=== PATIENT | female | born 1960 | race Caucasian/White ===

== ENCOUNTER 2018-09-20 17:45 | Inpatient (IN) | payer OTHER ==
[~2018-09-20] VITALS: Ht 170.2 cm; Wt 64.6 kg
[2018-09-20 18:25] LABS: BASOPHILS ABSOLUTE AUTO 0.02 K/mm3 (0.00-0.23); BASOPHILS PERCENT AUTO 0 % (0-2); EOSINOPHILS PERCENT AUTO 0 % (0-6); Hematocrit 29.8 % (33.0-51.0); Hemoglobin 10.2 g/dL (11.5-16.0); IMMATURE GRAN ABSOLUTE AUTO 0.12 K/mm3 (0.00-0.10); IMMATURE GRAN PERCENT AUTO 1 % (0-1); LYMPHOCYTES ABSOLUTE AUTO 0.48 K/mm3 (0.84-5.20); LYMPHOCYTES PERCENT AUTO 4 % (21-46); MONOCYTES ABSOLUTE AUTO 0.93 K/mm3 (0.16-1.47); MONOCYTES PERCENT AUTO 7 % (4-13); Mean Corpuscular HGB 31.9 pg (26.0-34.0); Mean Corpuscular HGB Conc 34.2 g/dL (31.5-36.5); Mean Corpuscular Volume 93 fL (80-100); Mean Platelet Volume 10.3 fL (9.1-12.4); NEUTROPHILS ABSOLUTE AUTO 10.96 K/mm3 (1.96-9.15); NEUTROPHILS PERCENT AUTO 88 % (41-73); Platelet Count 198 K/mm3 (150-400); RDW Coefficient Variation 11.3 % (11.7-14.2); RDW Standard Deviation 38.9 fL (35.1-46.3); White Blood Cell Count 12.51 K/mm3 (4.00-11.30)
[2018-09-20 18:44] LABS: Source, Urine Clean Catch
[2018-09-20 18:47] LABS: Alanine Aminotransfer (ALT/SGP 57 U/L (12-78); Albumin, Blood 3.1 g/dL (3.4-5.0); Albumin/Globulin Ratio 0.9 (0.8-1.8); Alk Phos 68 U/L (50-136); Anion Gap 8 mmol/L (6-16); Aspartate Aminotrans (AST/SGOT 81 U/L (12-37); Bilirubin, Total 1.1 mg/dL (0.1-1.0); Blood Urea Nitrogen 14 mg/dL (8-24); Bun/Creatinine Ratio 17.8 (12.0-20.0); CO2, Blood 24 mmol/L (21-32); Calcium, Blood 8.6 mg/dL (8.5-10.1); Chloride, Blood 104 mmol/L (98-108); Creatinine, Blood 0.79 mg/dL (0.40-1.00); Globulin, Blood 3.5 g/dL (2.2-4.0); Glomerular Filtration Rate >60 (60-); Glucose, Blood 128 mg/dL (70-99); Potassium, Blood 3.4 mmol/L (3.5-5.5); Sodium, Blood 136 mmol/L (136-145); Total Protein, Blood 6.6 g/dL (6.4-8.2)
[2018-09-20 18:50] LABS: Appearance, Urine Hazy (Clear); Bilirubin, Urine Neg (Neg); Blood, Urine 4+ (Neg); Color, Urine Yellow (P-Yellow); Glucose Qualitative, Urine Neg (Neg); Ketones, Urine Neg (Neg); Leukocyte Esterase, Urine 3+ (Neg); Nitrite, Urine Neg (Neg); Protein, Urine 3+ (Neg); Specific Gravity, Urine 1.015 (1.003-1.022); Urobilinogen, Urine 1+ (Normal)
[2018-09-20 19:15] LABS: White Blood Cells, Urine 50-100 /hpf (0-5)
[2018-09-20 19:16] LABS: Bacteria Many /hpf; Squamous Epithelial Cells Few /hpf (Few)
--- NOTE | 2018-09-20 23:00 | NUR ---
PCU ADMIT PT BROUGHT TO PCU RM 05 FROM THE ER BY ASAEL @ 2140. PT A&O X4, FEBRILE @ 100.4 ORAL TEMP W/ BLANKETS PILED ON PT. STAFF ATTEMPT TO REMOVE PT BLANKETS W/ PT REFUSAL OF REMOVAL. PT MEDICATED W/ TYLENOL PER EMAR W/ INCREASE IN TEMP TO 103.1 UPON REASSESSMENT. THIS NURSE EDUCATING PT AND PT SPOUSE ABOUT CONCERNS FOR FEVER INCREASING AND PT BUNDLING BLANKETS OVER BODY. PT SPOUSE AND PT VOICE REFUSAL STATING "NEW RESEARCH HAS BEEN RELEASED THAT ENVIRONMENTAL TEMPERATURE DOES NOT AFFECT CORE TEMPERATURE." PT SPOUSE STATING "WE'VE BEEN 34 YEARS AND SHE STRUGGLES WITH STAYING WARM. IT'S NOT GOOD FOR HER TO BE COLD. SHE'S THIN AND HAS A HIGH METABOLISM, SHE DOESN'T HAVE THE CALORIES TO BE ABLE TO SHIVER." TIME SPENT ADDRESSING VOICED CONCERNS AND VIEWS W/ CONTINUED REFUSAL BY PT AND PT SPOUSE FOR REMOVAL OF EXCESS BLANKETS AND POSSIBLY ADDING A FAN. WILL CONTINUE TO MONITOR AND PROVIDE CARE ABLE.
[2018-09-21 03:47] LABS: Hematocrit 27.8 % (33.0-51.0); Hemoglobin 9.6 g/dL (11.5-16.0); Mean Corpuscular HGB 32.2 pg (26.0-34.0); Mean Corpuscular HGB Conc 34.5 g/dL (31.5-36.5); Mean Corpuscular Volume 93 fL (80-100); Mean Platelet Volume 10.2 fL (9.1-12.4); Platelet Count 175 K/mm3 (150-400); RDW Coefficient Variation 11.5 % (11.7-14.2); RDW Standard Deviation 39.1 fL (35.1-46.3); Red Blood Cell Count 2.98 M/mm3 (3.80-5.20); White Blood Cell Count 11.49 K/mm3 (4.00-11.30)
[2018-09-21 04:03] LABS: Anion Gap 7 mmol/L (6-16); Blood Urea Nitrogen 13 mg/dL (8-24); Bun/Creatinine Ratio 15.5 (12.0-20.0); CO2, Blood 21 mmol/L (21-32); Calcium, Blood 7.5 mg/dL (8.5-10.1); Chloride, Blood 110 mmol/L (98-108); Creatinine, Blood 0.84 mg/dL (0.40-1.00); Glomerular Filtration Rate >60 (60-); Glucose, Blood 112 mg/dL (70-99); Magnesium, Blood 1.8 mg/dL (1.6-2.4); Potassium, Blood 3.7 mmol/L (3.5-5.5); Sodium, Blood 138 mmol/L (136-145)
--- NOTE | 2018-09-21 04:56 | NUR ---
SHIFT SUMMARY PT A&O X4. PT TEMP CONTINUES TO BE ELEVATED. PT AND PT SPOUSE REFUSING PO TYLENOL AND IBUPROFEN AND MULTIPLE BLANKETS REMAIN ON PT DESPITE STAFF EDUCATION. PT SPOUSE REQUESTING IV NUTRITION FOR PT STATING PT HASN'T EATEN IN DAYS. STAFF ENCOURAGING PO NUTRITION AND HYDRATION. NS KCL GTT INFUSING PER EMAR. PT C/O NAUSEA, MEDICATED PER EMAR X2 THIS SHIFT. PT DENIES ANY PAIN. BP CONTINUES TO BE LOW, OTHERWISE VSS. MONITOR SHOWS NSR, HR 80-100. LUNG SOUNDS CLEAR, SPO2 > 92% ON RA. WILL CONTINUE TO MONITOR AND PROVIDE CARE UNTIL REPORT OFF TO DAY SHIFT RN.
--- NOTE | 2018-09-21 07:19 | NUR ---
Bedside handoff report received from Kaitlyn Lowe RN. The pt is right side lying in the bed, states that there is nothing she needs at the moment. States that she tolerated the smoothie which her brought her from home without any nausea or vomiting. STates that before she was not able to keep anything down. Her is also at the bedside at this time.
--- NOTE | 2018-09-21 08:59 | NUR ---
ASSUMED CARE OF PATIENT AT APPROX 0700. PT RESTING IN BED. A&Ox4. CALM AND COOPERATIVE WITH CARE. PT DENIES PAIN, NAUSEA AND SOB. DENIES PAINFUL OR DIFFICULT URNIATIONS. PT LS DIM IN BASES, ENCOURAGED DEEP BREATHING AND COUGHING. PT FEBRILE, DENIES NEEDS FOR MEDICATIONS OR INTERVENTION AT THIS TIME. SPOUSE AT BEDSIDE. WILL CONTINUE TO MONITOR.
--- NOTE | 2018-09-21 14:02 | NUR ---
REPORT GIVEN TO PATSY HILTON ON MEDICATIONS, PT TO ROOM 355. PT CONTINUE TO BE FEBRILE, SPOUSE AND PATIENT SPOKE WITH WITH PATSY ANGULO REGARDING POSSIBLY TRYING TYLENOL AND ZOFRAN AFTER A SMOOTHING FROM HOME. NO CHANGES FROM ASSESSMENT THIS AM.
--- NOTE | 2018-09-21 15:36 | NUR ---
PCU TRANSFER. RECIEVED REPORT. PT ARRIVE TO MED FLOOR RM 355 APPROX 1430. SHE IS A/O X4, PLEASANT AFFECT. STATE NO PAIN @ THIS TIME, STATE COMFORT. SHE APPEARS FATIGUED. TEMP @ 100.6, BP 97/59, BIOX 92% RA. FLUIDS & ICE CHIPS PROVIDED. IV NS w 20KCL+ INFUSING @ 125 ML/HR. FAMILY @ BEDSIDE. PT STATE SHE IS WILLING TO ACCEPT ANTIPYRETIC SUCH TYLENOL IF BECOMES FEVERISH AGAIN, STATE REASON SHE HAD DECLINED EARLIER D/T NAUSEA.
[2018-09-22 04:56] LABS: Hematocrit 29.3 % (33.0-51.0); Hemoglobin 9.6 g/dL (11.5-16.0); Mean Corpuscular HGB 30.5 pg (26.0-34.0); Mean Corpuscular HGB Conc 32.8 g/dL (31.5-36.5); Mean Corpuscular Volume 93 fL (80-100); Mean Platelet Volume 10.3 fL (9.1-12.4); Platelet Count 174 K/mm3 (150-400); RDW Coefficient Variation 11.6 % (11.7-14.2); RDW Standard Deviation 39.5 fL (35.1-46.3); Red Blood Cell Count 3.15 M/mm3 (3.80-5.20)
[2018-09-22 05:17] LABS: Alanine Aminotransfer (ALT/SGP 48 U/L (12-78); Albumin, Blood 2.6 g/dL (3.4-5.0); Albumin/Globulin Ratio 0.8 (0.8-1.8); Alk Phos 71 U/L (50-136); Anion Gap 7 mmol/L (6-16); Aspartate Aminotrans (AST/SGOT 36 U/L (12-37); Bilirubin, Total 0.5 mg/dL (0.1-1.0); Blood Urea Nitrogen 13 mg/dL (8-24); CO2, Blood 21 mmol/L (21-32); Chloride, Blood 112 mmol/L (98-108); Creatinine, Blood 0.77 mg/dL (0.40-1.00); Globulin, Blood 3.2 g/dL (2.2-4.0); Glomerular Filtration Rate >60 (60-); Glucose, Blood 97 mg/dL (70-99); Potassium, Blood 3.9 mmol/L (3.5-5.5); Sodium, Blood 140 mmol/L (136-145); Total Protein, Blood 5.8 g/dL (6.4-8.2)
[2018-09-22 05:20] LABS: BAND PERCENT MAN 18 % (0-8); BASOPHILS PERCENT MAN 0 % (0-2); EOSINOPHILS PERCENT MAN 0 % (0-6); LYMPHOCYTES ABSOLUTE MAN 0.41 K/mm3 (0.84-5.20); LYMPHOCYTES PERCENT MAN 4 % (21-46); MONOCYTES PERCENT MAN 1 % (4-13); NEUTROPHILS ABSOLUTE MAN 9.78 K/mm3 (1.96-9.15); SEG NEUTROPHILS PERCENT MAN 77 % (41-73); TOTAL CELLS COUNTED 100
[2018-09-22 05:23] LABS: Percent Saturation 6.7 % (15.0-50.0)
--- NOTE | 2018-09-22 06:30 | NUR ---
SHIFT SUMMARY PT IS A 58 Y/O F, ADMITTED FOR ACUTE PYELONEPHRITIS. SHE IS A&O X 4, AND A SBA IN THE ROOM. THE PT DENIED PAIN OR SOB DURING THE NIGHT. SHE DID REPORT NAUSEA AND A LACK OF APPETITE, THOUGH SHE DENIED THE NEED FOR NAUSEA MEDS. THE PT HAD A FEVER THROUGH THE NIGHT. AT THE BEGINNING OF THE SHIFT, PT WAS AT 102.1. SHE WAS MEDICATED WITH A ONE TIME DOSE OF IV TORADOL, SHE REPORTED WOULD BE UNABLE TO KEEP PO MEDS DOWN. ON REASSESSMENT, PT'S TEMPERATURE CAME DOWN TO 100.3, AND REMAINED BETWEEN 100-100.9 THROUGH THE NIGHT. SHE ALSO REPORTED EPISODES OF CHILLS AND SWEATS. THIS AM, THE PT'S O2 LEVEL WAS AT 87-88%, AND SHE WAS PLACED ON 2L OF O2 VIA NC. ALL OTHER VITALS REMAINED STABLE. NO OTHER ACUTE CHANGES IN PT CONDITION NOTED. WILL CONTINUE TO MONITOR AND TREAT PER EMAR UNTIL HAND OFF TO DAY SHIFT.
--- NOTE | 2018-09-22 11:00 | NUR ---
PT QUITE PLEASANT COOP A/O DENIES PAIN. IS PALE. STATES IS VEGETARIAN. H/R REG, NO MURMER NOTED. NO TELE. LUNGS CLEAR, NO MURMER NOTED. INSTRUCTED ON BETTER USE OF INCENTIVE SPIROMETER. RESP EASY, UNLABORED SHALLOW. ON 2L O2. REMOVED O2. CHECKED SEVERAL TIMES. IS >90% . BT ARE HYPO. LAST BM YEST PER PT. VOIDS PER BATHROOM. INDEPENDANT IN ROOM. WALKS CRUZ WITH . BED IN LOW POSITION, CALL LITE IN REACH, CALLS APPROP
--- NOTE | 2018-09-22 16:11 | NUR ---
PT PLEASANT TODAY. STATES SHE DOING BETTER TODAY. DID SHOWER SELF TODAY. BEEN UP IN ROOM. NO OTHER CONCERNS AT THIS TIME. BED IN LOW POSITION, CALL LITE IN REACH. CALLS APPROP. HAS BEEN EATING OWN HOME MADE VEGETARIAN FOOD.
[2018-09-23 05:28] LABS: BASOPHILS ABSOLUTE AUTO 0.02 K/mm3 (0.00-0.23); BASOPHILS PERCENT AUTO 0 % (0-2); EOSINOPHILS ABSOLUTE AUTO 0.03 K/mm3 (0.00-0.68); EOSINOPHILS PERCENT AUTO 0 % (0-6); Hematocrit 26.7 % (33.0-51.0); Hemoglobin 9.2 g/dL (11.5-16.0); IMMATURE GRAN ABSOLUTE AUTO 0.07 K/mm3 (0.00-0.10); IMMATURE GRAN PERCENT AUTO 1 % (0-1); LYMPHOCYTES ABSOLUTE AUTO 0.67 K/mm3 (0.84-5.20); LYMPHOCYTES PERCENT AUTO 8 % (21-46); MONOCYTES ABSOLUTE AUTO 0.58 K/mm3 (0.16-1.47); MONOCYTES PERCENT AUTO 7 % (4-13); Mean Corpuscular HGB 31.9 pg (26.0-34.0); Mean Corpuscular HGB Conc 34.5 g/dL (31.5-36.5); Mean Corpuscular Volume 93 fL (80-100); Mean Platelet Volume 10.8 fL (9.1-12.4); NEUTROPHILS ABSOLUTE AUTO 6.57 K/mm3 (1.96-9.15); NEUTROPHILS PERCENT AUTO 83 % (41-73); Platelet Count 196 K/mm3 (150-400); RDW Coefficient Variation 11.4 % (11.7-14.2); RDW Standard Deviation 38.8 fL (35.1-46.3); Red Blood Cell Count 2.88 M/mm3 (3.80-5.20); White Blood Cell Count 7.94 K/mm3 (4.00-11.30)
[2018-09-23 05:50] LABS: Anion Gap 9 mmol/L (6-16); Blood Urea Nitrogen 10 mg/dL (8-24); Bun/Creatinine Ratio 15.6 (12.0-20.0); CO2, Blood 22 mmol/L (21-32); Calcium, Blood 7.8 mg/dL (8.5-10.1); Chloride, Blood 110 mmol/L (98-108); Creatinine, Blood 0.64 mg/dL (0.40-1.00); Glomerular Filtration Rate >60 (60-); Glucose, Blood 81 mg/dL (70-99); Potassium, Blood 3.6 mmol/L (3.5-5.5); Sodium, Blood 141 mmol/L (136-145)
--- NOTE | 2018-09-23 06:58 | NUR ---
SHIFT SUMMARY PT A/O INDEPENDENT IN ROOM. NO C/O PAIN. S/O AT BEDSIDE T/O NOC. SHE WAS ABLE TO SLEEP T/O NOC. CALL LIGHT IN REACH.
[2018-09-23] MEDS ORDERED: Amoxicillin500 MG PO (09:46)
[2018-09-23] MEDS ORDERED: Vsl#3 Capsule1 EACH PO (09:47)
--- NOTE | 2018-09-23 09:57 | NUR ---
DISCHARGE NOTE PT DISCHARGED VIA W/C HOME WITH SIGNIFICANT OTHER AND IN NO PAIN OR DISTRESS. VERBALIZED UNDERSTANDING OF TAKING ANTIBIOTICS AND OTHER MEDICATIONS PRESCRIBED. TO FOLLOW UP WITH PCP AND FAMILY/PT WILL SCHEDULE AN APPOINTMENT. RX FAXED TO [facility] PRIOR TO DISCHARGE.
== END 2018-09-23 10:07 | disposition home or self-care (01) | DRG 872 ==
LOC: ER 17:45 → PCU 20:11 → MEDS 09-21 13:45
PROVIDERS: Emergency Medicine; Internal Medicine; Nurse Practitioner Acute Care; Physician Assistant; ADMIT Hospitalist
DX: A41.51 Sepsis due to Escherichia coli [E. coli] (principal); N10 Acute pyelonephritis; D50.9 Iron deficiency anemia, unspecified; Z66 Do not resuscitate; D63.8 Anemia in other chronic diseases classified elsewhere; R79.89 Other specified abnormal findings of blood chemistry; D64.9 Anemia, unspecified; E87.6 Hypokalemia
CPT/HCPCS: 36415; 71046; 80048; 80053; 81001; 82607; 82728; 82746; 83540; 83550; 83605; 83735; 85025; 85027; 87040; 87086; 87186; 96365; 96375; 99285-25; A9270; J0696; J1885; J2405; J3480; J7030

== ENCOUNTER → 2018-09-20 | Outpatient (CLI) | payer SELFPAY ==
[~2018-09-20] MED LIST: Amoxicillin500 MG PO; Vsl#3 Capsule1 EACH PO
[2018-09-20 10:39] LABS: BASOPHILS ABSOLUTE AUTO 0.03 K/mm3 (0.00-0.23); BASOPHILS PERCENT AUTO 0 % (0-2); EOSINOPHILS PERCENT AUTO 0 % (0-6); Hematocrit 33.6 % (33.0-51.0); Hemoglobin 11.6 g/dL (11.5-16.0); IMMATURE GRAN PERCENT AUTO 1 % (0-1); LYMPHOCYTES ABSOLUTE AUTO 0.41 K/mm3 (0.84-5.20); LYMPHOCYTES PERCENT AUTO 3 % (21-46); MONOCYTES ABSOLUTE AUTO 1.18 K/mm3 (0.16-1.47); MONOCYTES PERCENT AUTO 8 % (4-13); Mean Corpuscular HGB Conc 34.5 g/dL (31.5-36.5); Mean Corpuscular Volume 93 fL (80-100); Mean Platelet Volume 10.8 fL (9.1-12.4); NEUTROPHILS ABSOLUTE AUTO 12.36 K/mm3 (1.96-9.15); NEUTROPHILS PERCENT AUTO 88 % (41-73); Platelet Count 250 K/mm3 (150-400); RDW Coefficient Variation 11.2 % (11.7-14.2); RDW Standard Deviation 38.2 fL (35.1-46.3); Red Blood Cell Count 3.62 M/mm3 (3.80-5.20); White Blood Cell Count 14.08 K/mm3 (4.00-11.30)
[2018-09-20 10:49] LABS: Alanine Aminotransfer (ALT/SGP 18 U/L (12-78); Albumin, Blood 3.5 g/dL (3.4-5.0); Albumin/Globulin Ratio 0.9 (0.8-1.8); Alk Phos 64 U/L (50-136); Anion Gap 10 mmol/L (6-16); Aspartate Aminotrans (AST/SGOT 21 U/L (12-37); Bilirubin, Total 1.1 mg/dL (0.1-1.0); Blood Urea Nitrogen 15 mg/dL (8-24); Bun/Creatinine Ratio 16.6 (12.0-20.0); CO2, Blood 25 mmol/L (21-32); Calcium, Blood 8.8 mg/dL (8.5-10.1); Chloride, Blood 101 mmol/L (98-108); Globulin, Blood 3.9 g/dL (2.2-4.0); Glomerular Filtration Rate >60 (60-); Glucose, Blood 120 mg/dL (70-99); Potassium, Blood 3.2 mmol/L (3.5-5.5); Sodium, Blood 136 mmol/L (136-145); Total Protein, Blood 7.4 g/dL (6.4-8.2)
== END ==
LOC: LAB SHORT 10:23 → LAB 10:23
PROVIDERS: Nurse Practitioner
DX: R30.0 Dysuria (principal); R50.9 Fever, unspecified; R53.83 Other fatigue
CPT/HCPCS: 80053; 85025